=== PATIENT | female | born 1935 | race Caucasian/White ===

== ENCOUNTER 2018-05-26 17:34 | Inpatient (IN) ==
[2018-05-26] MEDS ORDERED: Naloxone 0.4 MG/ML INJ IVP PRN (22:13)
[2018-05-26] MEDS ORDERED: 0.9 % Sodium Chloride 1,000 ML IVC SCH (22:15)
[2018-05-26] MEDS ORDERED: Acetaminophen 325 MG TABLET PO PRN (22:21)
[2018-05-26] MEDS ORDERED: Ondansetron ODT 4 MG TAB.RAPDIS PO PRN (22:21)
[2018-05-27] MEDS: Sucralfate 1 GM TABLET PO SCH ×6 (01:54→22:01)
[2018-05-27 05:53] LABS: Basophils # 0.1 K/mcL (0.0-0.2); Basophils % 0.6 %; Eosinophils # 0.2 K/mcL (0.0-0.6); Eosinophils % 2.3 %; Hematocrit 34.9 % (35.3-44.9); Hemoglobin 12.1 g/dL (11.5-15.4); Immature Granulocytes % 0.2 % (0-4); Lymphocytes # 2.2 K/mcL (0.6-4.6); Lymphocytes % 25.8 %; Mean Corpuscular HGB Conc 34.7 g/dL (31.6-35.5); Mean Corpuscular Hemoglobin 30.9 pg (28.0-33.3); Mean Corpuscular Volume 89.3 fL (83.0-100.0); Mean Platelet Volume 9.5 fL (9.4-12.4); Monocytes # 1.1 K/mcL (0.0-1.3); Monocytes % 12.2 %; Neutrophils # 5.1 K/mcL (1.6-8.9); Platelet Count 234 K/mcL (140-400); Red Blood Count 3.91 M/mcL (3.82-4.97); Red Cell Distribution Width 11.9 % (11.5-14.5); Segmented Neutrophils % 58.9 %
[2018-05-27] MEDS ORDERED: *HR* Enoxaparin 40 MG/0.4 ML SYRINGE SQ SCH (06:00)
[2018-05-27 06:15] LABS: BUN/Creatinine Ratio 17 (6-26); Blood Urea Nitrogen 18 mg/dL (8-23); Calcium 9.2 mg/dL (8.6-10.3); Carbon Dioxide 28 mEq/L (23-29); Chloride 92 mEq/L (98-107); Glucose 99 mg/dL (70-105); Osmolality,Calculated 270 (280-300); Potassium 3.1 mEq/L (3.5-5.1); Sodium 129 mEq/L (136-145); eGFR For Non-African Americans 50 (> 60)
--- NOTE | 2018-05-27 06:30 | Internal Med History&Physical ---
Date of Encounter: 05/26/18 Time of Encounter: 23:00 Internal Medicine - H&P: HPI Chief complaint: Syncope; altered mental status Admitted From: Long-term Nursing Facility Plans for Post Hospital Care: Transfer [facility] History of present illness: Ms. Curtis is a 82 year old female. We got this patient from [facility]'s clinic in [facility]. 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 She developed left-sided weakness. After treatment in an acute care facility she was transferred to longterm facility. Today morning she experienced an episode of unresponsiveness lasting for a few minutes. The patient has been developing some confusion for about 1 week. It got worse today. She was started on Zoloft today morning. Her UA is showing changes suspected of UTI. After getting her first dose of IV antibiotic her mental status got somewhat better. She knows her first name and last name. She knows where she is. The patient is a treated for hypertension and GERD. She is treated for depression with anxiety. Review of systems: All 14 organ systems were reviewed by me with the patient. Positive and pertinent negative findings are listed above. The rest of organ systems is negative. Physical Exam: Skin: Free of rash and discoloration. Eyes: Sclera is white. There is no discharge from eyes. ENMT: Oral/pharyngeal mucosa is normal in appearance. There is no discharge from nose or ears. Respiratory: Normal breath sounds with no crackles and wheezes bilaterally. CV: Heart is regular with no gallop or murmur. GI: Abdomen is flat and soft with no palpable mass or visceromegaly. : There is no tenderness in patient's flanks bilaterally. Neuro exam: There is moderate weakness in the left extremities. She has normal eye movements. Psychiatric: He has normal affect. His thought process is appropriate to the situation. Past Med Surg Social Fam HX - Past Medical History Medical history: CHF, CVA, GERD, hypertension, TIA Additional medical history: diverticulosis Psychiatric history: no psych history - Past Surgical History Surgical History: cholecystectomy - Social History Smoking Status: Never smoker Alcohol use: none Drug use: none Internal Medicine - H&P: Meds Acetaminophen [Tylenol] 650 mg PO Q6HR PRN 05/26/18 [History] Atenolol [Tenormin] 50 mg PO BID 05/26/18 [History] Atorvastatin [Lipitor] 10 mg PO HS 05/26/18 [History] Chlorthalidone 12.5 mg PO 05/26/18 [History] Cholecalciferol (Vitamin D3) [Dialyvite Vitamin D] 5,000 unit PO DAILY 05/26/18 [History] Clopidogrel [Plavix] 75 mg PO DAILY 05/26/18 [History] Lisinopril [Zestril] 40 mg PO BID 05/26/18 [History] Ondansetron HCl [Zofran] 4 mg PO Q6HR PRN 05/26/18 [History] Polyethylene Glycol 3350 [MiraLAX] 17 gm PO DAILY PRN 05/26/18 [History] Ranitidine HCl [Zantac] 300 mg PO DAILY 05/26/18 [History] Sennosides [Senna] 8.6 mg PO BID 05/26/18 [History] Sertraline [Zoloft] 25 mg PO DAILY 05/26/18 [History] Sucralfate [Carafate] 1 gm PO HS 05/26/18 [History] Sucralfate [Carafate] 1 gm PO TIDAC 05/26/18 [History] Trazodone HCl 25 mg PO DAILY 05/26/18 [History] cloNIDine HCl [CloNIDine HCl] 0.1 mg PO TID 05/26/18 [History] 3 Allergy/AdvReac Type Severity Reaction Status Date / Time amlodipine Allergy Anaphylaxis Verified 05/27/18 01:51 Terazosin Allergy Anaphylaxis Verified 05/27/18 01:51 All Systems PM: A 10-system review of systems was performed and is negative for pertinent findings except as documented above in the HPI. - Constitutional Vitals: Temp Pulse Resp BP Pulse Ox 97.8 F 61 16 154/72 94 05/27/18 04:41 05/27/18 04:41 05/27/18 04:41 05/27/18 04:41 05/27/18 04:41 Internal Med - H&P Results - Labs CBC & Chem 7: 05/27/18 05:40 05/27/18 05:40 Labs: Short CBC 05/27/18 Range/Units 05:40 WBC 8.6 (4.3-11.1) K/mcL Hgb 12.1 (11.5-15.4) g/dL Hct 34.9 L (35.3-44.9) % Plt Count 234 (140-400) K/mcL Neutrophils # 5.1 (1.6-8.9) K/mcL BMP 05/27/18 05:40 Sodium 129 L Potassium 3.1 L Chloride 92 L Carbon Dioxide 28 BUN 18 Creatinine 1.04 Glucose 99 Calcium 9.2 - Assessment and plan (1) Syncope Current Visit: Yes Status: Acute Assessment and plan: I am not sure, whether she had true syncope a short lasting episode of unresponsiveness.We will observe her in telemetry floor. The patient had recently CVA. They repeated an MRI of her brain. It shows a subacute CVA in the distribution of her right middle cerebral artery. She might have had short lasting seizure. I discussed this case with neurology. Qualifiers: Syncope type: unspecified Qualified Code(s): R55 - Syncope and collapse (2) Altered mental state Current Visit: Yes Status: Acute Assessment and plan: It could be secondary to her first dose of Zoloftwill stop this medication. It could be secondary to early urinary tract infection. We will keep her on IV Cipro. She could be postictal. I doubt, she has a new CVA. Her subacute infarct showing on her last MRI is likely the infarct she had 6 weeks ago. Neurology is consulted. Qualifiers: Altered mental status type: transient alteration of awareness Qualified Code(s): R40.4 - Transient alteration of awareness (3) HTN (hypertension) Current Visit: Yes Status: Acute Assessment and plan: Her blood pressure is under control. We will continue lisinopril. Qualifiers: Hypertension type: essential hypertension Qualified Code(s): I10 - Essential (primary) hypertension (4) GERD (gastroesophageal reflux disease) Current Visit: Yes Status: Acute Assessment and plan: Seems to be under control. We will continue omeprazole. Qualifiers: Esophagitis presence: esophagitis presence not specified Qualified Code(s) : K21.9 - Gastro-esophageal reflux disease without esophagitis - Time Spent With Patient Total time spent is greater than 50% in coordination of care (as documented) at patient's floor/unit and/or counseling patient: Greater than 35 minutes (40 minutes)
[2018-05-27] MEDS ORDERED: traZODone 50 MG TABLET PO SCH (09:00)
[2018-05-27] MEDS: Sennosides 8.6 MG TABLET PO SCH ×2 (09:58→22:01)
[2018-05-27] MEDS: cloNIDine HCl 0.1 MG TABLET PO SCH ×3 (09:58→22:01)
[2018-05-27] MEDS: Famotidine 20 MG TABLET PO SCH (09:59)
[2018-05-27] MEDS: Cholecalciferol (D-3) 1,000 UNIT TABLET PO SCH (09:59)
[2018-05-27] MEDS: Lisinopril 20 MG TABLET PO SCH ×2 (09:59→22:02)
--- NOTE | 2018-05-27 10:43 | Event Note ---
<Sveta Cruz A - Last Filed: 05/27/18 15:28> Date of Encounter: 05/27/18 Time of Encounter: 09:30 Medical Student Note-Sveta Cruz OMS-IV Subjective: Patient was laying down and speaking with her daughter upon my arrival. Upon questioning the patient is alert and oriented x 2. Patient states that she was unable to sleep well last night and was having abdominal pain, but denies any pain at this time. Patient also denies any other acute distress but is tearful and states that she feels like she is "back to square one" in terms of her medical problems. Ms. Curtis denies any chest pain, shortness of breath, weakness, abdominal pain, nausea/vomiting, or chills. Objective: Vitals: Temperature-97.8, HR-64, RR-16, RP-175/90, O2-97 General Appearance: Patient is alert and oriented x 2 (person and place) Head exam: Atraumatic, normocephalic Eye exam: PERRL, conjuntiva pink, sclera anicteric Neck exam: Trachea midline Respiratory exam: No wheezing, rales, or rhonci Cardiology exam: RRR, +S1, +S2 Gastrointestinal exam: Normal bowel sounds, soft Extremities exam: warm without tenderness or peripheral edema Neurological exam: CN II-XII intact, weakness of the left upper and lower extremities (muscle strength 2/5). Skin exam: Dry and intact Assessment: 1. Altered Mental Status 2. Syncope 3. UTI 4. Hyponatremia 5. Hypokalemia 6. Hypertension 7. GERD 8. DVT Prophylaxis Plan: 1. Patient is alert and oriented x 2 (person and place). Upon admission the patient was disoriented and alf states that she had been developing confusion over the last week. AMS is believed to be secondary to UTI or from first dose of Zoloft (Discontinued), patient's mental status improved after receiving the first dose of antibiotics. AMS could also be due to electrolyte imbalance (hyponatremia). Continue to monitor the patient. 2. Nursing staff state that the patient experienced an episode of unresponsiveness lasting for a few minutes yesterday morning. Ms. Curtis states that as far as she knows she has had no other such episodes since her admission. MRI from the [facility] showed a subacute CVA in the distribution of her right middle cerebral artery, this is likely from her previous CVA 6 weeks ago. Could possibly have occurred from a seizure, consider getting an EEG for the patient. Neurology has been consulted. 3. The patient's AMS is believed to be secondary to UTI. The patient received a Urinalysis from the [facility] which showed evidence of her UTI prior to her transfer to [facility], however those results are not available. Patient is receiving treatment with Ciprofloxacin 400 mg in 200 mls @ 200 mls/hr. Patient appears to be clinically improving, currently afebrile and WBC is 8.6 4. Ms. Curtis latest CMP revealed a slightly low sodium of 129. Patient has been administered Sodium Chloride earlier this morning and she denies any nausea , headaches, muscle spasms, and does not appear to be irritable. Patient should receive replacement if lab value does not improve. 5. Patient's latest CMP also revealed a low potassium of 3.1. Patient denies any constipation, palpiptations, or numbness. On physical exam her abdomen is soft and non-distended. Patient should receive oral replacement with 40mEq PO KCL. 6. Patient has a previous history of hypertension, currently receiving Lisinopril Chlorthalidone, and Clonidine. Latest value of 127/65. 7. Patient has a previous history of GERD. Currently receiving therapy via Famotidine. 8. Patient is currently receiving anticoagulation with Lovenox. No complaints of any calf/leg tenderness and there is no swelling of the lower extremities <Brit Elizondo - Last Filed: 06/07/18 17:43> Date of Encounter: 06/07/18 I examined this patient and my medical decision-making was reviewed with the Medical student. Please see progress note available in EMR chart.
[2018-05-27] MEDS ORDERED: Preparation H Ointment 30 GM TUBE RC PRN (14:54)
--- NOTE | 2018-05-27 15:00 | Internal Med Progress Note ---
Hospitalist Progress Note - Encounter Date of Encounter: 05/27/18 Time of Encounter: 12:00 - Subjective Interval History: No acute events. Patient states she is still having left sided weakness but this was still on-going since after stroke. She denies change in vision, headache, fevers/chills, n/v, LOC, chest pain, SOB. - Exam Vitals: Temp Pulse Resp BP Pulse Ox 97.9 F 60 16 127/65 97 05/27/18 10:56 05/27/18 10:56 05/27/18 10:56 05/27/18 10:56 05/27/18 10:56 Exam: Eyes: Sclera is white. There is no discharge from eyes. Respiratory: CTAB CV: RRR, no mrg GI: Softn, NT/ND, normal bowel sound Neuro exam: Weakness in the left extremities. She has normal eye movements. Psychiatric: He has normal affect. His thought process is appropriate to the situation. Skin: No rash - Assessment and Plan (1) Syncope Current Visit: Yes Status: Acute Assessment and Plan: Unsure if this is true syncope. Patient states she did not have any LOC she was just feeling weak. She recently had CVA which could contribute to weakness. Repeated MRI of her brain showed a subacute CVA in the distribution of her right middle cerebral artery. She might have had short lasting seizure. Neurology consulted, recommendations appreciated. (2) Altered mental state Current Visit: Yes Status: Acute Assessment and Plan: Suggested this could be from UTI continue antibiotics. (3) GERD (gastroesophageal reflux disease) Current Visit: Yes Status: Acute (4) HTN (hypertension) Current Visit: Yes Status: Acute Assessment and Plan: Resume medications. - Time Spent with Patient Total time spent is greater than 50% in coordination of care (as documented) at patient's floor/unit and/or counseling patient: Internal Medicine: Result - Labs CBC & Chem 7: 05/27/18 05:40 05/27/18 05:40 Labs: Short CBC 05/27/18 Range/Units 05:40 WBC 8.6 (4.3-11.1) K/mcL Hgb 12.1 (11.5-15.4) g/dL Hct 34.9 L (35.3-44.9) % Plt Count 234 (140-400) K/mcL Neutrophils # 5.1 (1.6-8.9) K/mcL BMP 05/27/18 05:40 Sodium 129 L Potassium 3.1 L Chloride 92 L Carbon Dioxide 28 BUN 18 Creatinine 1.04 Glucose 99 Calcium 9.2 Consult Discharge Plan - Plan Referrals: Luis Fernando Galeana MD [Primary Care Provider] - (1) Syncope Qualifiers: Syncope type: unspecified Qualified Code(s): R55 - Syncope and collapse (2) Altered mental state Qualifiers: Altered mental status type: transient alteration of awareness Qualified Code( s): R40.4 - Transient alteration of awareness (3) GERD (gastroesophageal reflux disease) Qualifiers: Esophagitis presence: esophagitis presence not specified Qualified Code(s): K21.9 - Gastro-esophageal reflux disease without esophagitis (4) HTN (hypertension) Qualifiers: Hypertension type: essential hypertension Qualified Code(s): I10 - Essential (primary) hypertension
--- NOTE | 2018-05-27 15:34 | Neurology - Consult Note ---
<Silver Deal T - Last Filed: 05/27/18 17:21> Date of Encounter: 05/27/18 Time of Encounter: 11:40 Assessment and Plan (1) Altered mental state Current Visit: Yes Status: Acute Her new onset confusion is likely due to her current UTI. However, likely has some baseline dementia that has not been formally tested which her UTI likely exacerbated. There is no evidence of a new acute stroke or another metabolic cause. Continue current treatment for her UTI and reassess for changes in mental status. Qualifiers: Altered mental status type: transient alteration of awareness Qualified Code(s): R40.4 - Transient alteration of awareness History of Present Illness Chief complaint: Confusion HPI: Ms. Curtis is a 82 year old female with a PMH significant for R MCA CVA 6 weeks ago and HTN, neurology consult for confusion/unresponsiveness. Since dc for the R MCA CVA she has been at stroke rehab, beginning this week she began to become confused and yesterday morning while at rehab she was sitting in a chair and the staff was attempting to talk to her and she was not responsive to them. She denies this and says she could hear and see them but was just resting for a couple min. She has become more agitated this week and was given first dose of zoloft yesterday morning. A UA from the rehab center showed evidence of an UTI and has been placed on IV cipro and zoloft stopped. Since the antibiotics were begun the admission note indicated her confusion has decreased. Today, she says she feels better than yesterday but indicated she does not believe she was ever confused. Her daughter at bedside said since she has been here her confusion has fluctuated and has some baseline memory loss. She complains of feeling like she has to urinate but when attempting to urinate she is unable to. She also indicates her appetite has been very decreased and when attempting to eat she loses her appetite. She denies any new neurological deficits and has been making progress with improving the previous CVA deficits at rehab. Past Med Surg Social Fam HX - Past Medical History Medical history: CHF, CVA, GERD, hypertension, TIA Additional medical history: diverticulosis Psychiatric history: no psych history - Past Surgical History Surgical History: cholecystectomy - Social History Smoking Status: Never smoker Alcohol use: none Drug use: none Medications and Allergies Acetaminophen [Tylenol] 650 mg PO Q6HR PRN 05/26/18 [History] Atenolol [Tenormin] 50 mg PO BID 05/26/18 [History] Atorvastatin [Lipitor] 10 mg PO HS 05/26/18 [History] Chlorthalidone 12.5 mg PO Q48H 05/26/18 [History] Cholecalciferol (Vitamin D3) [Dialyvite Vitamin D] 5,000 unit PO DAILY 05/26/18 [History] Clopidogrel [Plavix] 75 mg PO DAILY 05/26/18 [History] Lisinopril [Zestril] 40 mg PO BID 05/26/18 [History] Ondansetron HCl [Zofran] 4 mg PO Q6HR PRN 05/26/18 [History] Polyethylene Glycol 3350 [MiraLAX] 17 gm PO DAILY PRN 05/26/18 [History] Ranitidine HCl [Zantac] 300 mg PO DAILY 05/26/18 [History] Sennosides [Senna] 8.6 mg PO BID 05/26/18 [History] Sertraline [Zoloft] 25 mg PO DAILY 05/26/18 [History] Sucralfate [Carafate] 1 gm PO HS 05/26/18 [History] Sucralfate [Carafate] 1 gm PO TIDAC 05/26/18 [History] Trazodone HCl 25 mg PO HS 05/26/18 [History] cloNIDine HCl [CloNIDine HCl] 0.1 mg PO TID 05/26/18 [History] 3 Allergy/AdvReac Type Severity Reaction Status Date / Time amlodipine Allergy Anaphylaxis Verified 05/27/18 01:51 Terazosin Allergy Anaphylaxis Verified 05/27/18 01:51 All Systems: The remainder of the systems were reviewed and are negative Physical Examination - Vital Signs Vital Signs: Initial Vital Signs Temp Pulse Resp BP Pulse Ox 97.5 F L 59 17 144/78 99 05/26/18 19:15 05/26/18 19:15 05/26/18 19:15 05/26/18 19:15 05/26/18 19:15 - Constitutional General appearance: comfortable - Neurologic Detailed motor examination: grossly full strength in all extremities Mental Status Examination: awake, alert, oriented to person, oriented to place, follows commands appropriately, impaired memory, impaired cognition, MMSE ( Thought year was 1920, could spell world forward but not backwards, serial 7's produced result of 903 for 100-7, could follow commands and repeat, remembered 3 /3 words, incorrectly braxton clock face, and could correctly name objects) Cranial nerve examination: PERRL, EOMI, sensory to face intact, no facial asymmetry is present (Thought year was 1919, ), no dysarthria, hearing is intact symmetrically, soft palate elevates bilaterally upon phonation, flexes SCM and trapezius muscles symmetrically with full power, tongue protrudes midline, no atrophy or facial fasiculations present Results - Laboratory Findings CBC and BMP: 05/27/18 05:40 05/27/18 05:40 Abnormal lab findings: Abnormal lab results Hct 34.9 % (35.3-44.9) L 05/27/18 05:40 Sodium 129 mEq/L (136-145) L 05/27/18 05:40 Potassium 3.1 mEq/L (3.5-5.1) L 05/27/18 05:40 Chloride 92 mEq/L (98-107) L 05/27/18 05:40 Est GFR (Non-Af Amer) 50 (> 60) L 05/27/18 05:40 Calculated Osmolality 270 (280-300) L 05/27/18 05:40 Consult Discharge Plan - Plan Referrals: Luis Fernando Galeana MD [Primary Care Provider] - <Luis Fernando Morataya E - Last Filed: 05/28/18 14:07> Date of Encounter: 05/28/18 Time of Encounter: 14:01 Assessment and Plan (1) Altered mental state Current Visit: Yes Status: Acute I agree with Dr. Deal's assessment as stated above. She is back to her normal baseline status now. I would like to confirm the previous right hemispheric cerebral infarct. However therefore obtain a CT scan of the brain today. I would like this done prior to discharge. Otherwise ongoing rehabilitation and management of her stroke risk factors is paramount. Maintain antiplatelet therapy, antihypertensives, and statin therapy. Qualifiers: Altered mental status type: transient alteration of awareness Qualified Code(s): R40.4 - Transient alteration of awareness History of Present Illness HPI: The chart was reviewed, the patient was seen and examined independently. Case was discussed with Dr. Deal. I agree with his assessment as stated above. Ms. Curtis is a 82 year old female who is being seen for neurologic consultation secondary to confusion. Apparently she had a recent right hemispheric cerebral infarct with some residual left-sided weakness. And while in the rehabilitation facility she began to become acutely confused ultimately was determined that she had a urinary tract infection and she was likely having infectious encephalopathy due to the UTI. The UTI has been treated and now she is back to her baseline of function. All Systems: The remainder of the systems were reviewed and are negative Review of Systems: The balance of the systems review is negative. Physical Examination - Vital Signs Vital Signs: Initial Vital Signs Temp Pulse Resp BP Pulse Ox 97.5 F L 59 17 144/78 99 05/26/18 19:15 05/26/18 19:15 05/26/18 19:15 05/26/18 19:15 05/26/18 19:15 - Neurologic Motor examination - right side: 5/5: deltoids, biceps, triceps, agricultural equipment sales engineer, hip flexors, tibialis Anterior, quadriceps, toe extension (EHL), plantarflexion Motor examination - left side: 4/5: deltoids, biceps, triceps, hip flexors, agricultural equipment sales engineer , quadriceps, tibialis Anterior, toe extension (EHL), plantarflexion Detailed sensory examination: intact Results - Laboratory Findings CBC and BMP: 05/28/18 06:07 05/28/18 06:07 Abnormal lab findings: Abnormal lab results Sodium 130 mEq/L (136-145) L 05/28/18 06:07 Potassium 3.1 mEq/L (3.5-5.1) L 05/28/18 06:07 Chloride 94 mEq/L (98-107) L 05/28/18 06:07 Est GFR (Non-Af Amer) 55 (> 60) L 05/28/18 06:07 Calculated Osmolality 272 (280-300) L 05/28/18 06:07
[2018-05-27] MEDS ORDERED: *HR* LORazepam 0.5 MG TABLET PO ONE (17:26)
[2018-05-27] MEDS: traZODone 50 MG TABLET PO SCH (22:01)
[2018-05-28 06:42] LABS: Basophils # 0.1 K/mcL (0.0-0.2); Basophils % 0.6 %; Eosinophils # 0.2 K/mcL (0.0-0.6); Eosinophils % 2.4 %; Hematocrit 35.5 % (35.3-44.9); Hemoglobin 12.4 g/dL (11.5-15.4); Immature Granulocytes % 0.2 % (0-4); Lymphocytes # 2.2 K/mcL (0.6-4.6); Lymphocytes % 25.7 %; Mean Corpuscular HGB Conc 34.9 g/dL (31.6-35.5); Mean Corpuscular Hemoglobin 31.2 pg (28.0-33.3); Mean Corpuscular Volume 89.4 fL (83.0-100.0); Mean Platelet Volume 9.7 fL (9.4-12.4); Monocytes # 1.2 K/mcL (0.0-1.3); Monocytes % 14.4 %; Neutrophils # 4.8 K/mcL (1.6-8.9); Platelet Count 250 K/mcL (140-400); Red Blood Count 3.97 M/mcL (3.82-4.97); Red Cell Distribution Width 11.6 % (11.5-14.5); Segmented Neutrophils % 56.7 %
[2018-05-28] MEDS: *HR* Enoxaparin 30 MG/0.3 ML SYRINGE SQ SCH (07:00)
[2018-05-28] MEDS: Sucralfate 1 GM TABLET PO SCH ×4 (07:01→21:38)
[2018-05-28 07:04] LABS: BUN/Creatinine Ratio 18 (6-26); Blood Urea Nitrogen 17 mg/dL (8-23); Calcium 9.1 mg/dL (8.6-10.3); Carbon Dioxide 28 mEq/L (23-29); Chloride 94 mEq/L (98-107); Glucose 103 mg/dL (70-105); Osmolality,Calculated 272 (280-300); Potassium 3.1 mEq/L (3.5-5.1); Sodium 130 mEq/L (136-145); eGFR For Non-African Americans 55 (> 60)
[2018-05-28] MEDS: Sennosides 8.6 MG TABLET PO SCH ×3 (09:42→21:38)
[2018-05-28] MEDS: Lisinopril 20 MG TABLET PO SCH ×2 (09:42→21:38)
[2018-05-28] MEDS: Famotidine 20 MG TABLET PO SCH (09:43)
[2018-05-28] MEDS: cloNIDine HCl 0.1 MG TABLET PO SCH ×3 (09:43→21:38)
[2018-05-28] MEDS: Cholecalciferol (D-3) 1,000 UNIT TABLET PO SCH (09:43)
[2018-05-28] MEDS ORDERED: 0.9 % Sodium Chloride 1,000 ML IVC SCH (11:15)
--- NOTE | 2018-05-28 11:39 | Internal Med Progress Note ---
Hospitalist Progress Note - Encounter Date of Encounter: 05/28/18 Time of Encounter: 11:32 - Subjective Interval History: No acute events. Patient states she is still having left sided weakness but this was still on-going since after stroke. She denies change in vision, headache, fevers/chills, n/v, LOC, chest pain, SOB. - Exam Vitals: Temp Pulse Resp BP Pulse Ox 97.9 F 61 16 189/81 98 05/28/18 06:52 05/28/18 06:52 05/28/18 06:52 05/28/18 06:52 05/28/18 09:43 Exam: Gen: NAD, AAOx3 HEENT: MM dry CVS: RRR Lungs: CTAB Abd: Soft, NT, ND Ext: No edema, no cyanosis. Left arm erythema near old IV site. No swelling. - Assessment and Plan (1) Altered mental state Current Visit: Yes Status: Acute Assessment and Plan: Suggested this could be from UTI and dehydration/presyncope continue antibiotics. Gentle IV fluid hydration, she appears dry today. Likely discharge tomorrow to [facility] rehab if sodium and hydration correct. (2) Syncope Current Visit: Yes Status: Acute Assessment and Plan: Unsure if this is true syncope. Patient states she did not have any LOC she was just feeling weak. She recently had CVA which could contribute to weakness. Repeated MRI of her brain showed a subacute CVA in the distribution of her right middle cerebral artery. She might have had short lasting seizure. Likely this was presyncope from dehydration and UTI (3) GERD (gastroesophageal reflux disease) Current Visit: Yes Status: Acute (4) HTN (hypertension) Current Visit: Yes Status: Acute Assessment and Plan: Hold chlorthalidone due to hyponatremia and hypokalemia. May need held on discharge with follow-up in few days. Continue Lisinopril IV hydralazine prn. - Time Spent with Patient Total time spent is greater than 50% in coordination of care (as documented) at patient's floor/unit and/or counseling patient: Internal Medicine: Result - Labs CBC & Chem 7: 05/28/18 06:07 05/28/18 06:07 Labs: Short CBC 05/28/18 Range/Units 06:07 WBC 8.4 (4.3-11.1) K/mcL Hgb 12.4 (11.5-15.4) g/dL Hct 35.5 (35.3-44.9) % Plt Count 250 (140-400) K/mcL Neutrophils # 4.8 (1.6-8.9) K/mcL BMP 05/28/18 06:07 Sodium 130 L Potassium 3.1 L Chloride 94 L Carbon Dioxide 28 BUN 17 Creatinine 0.96 Glucose 103 Calcium 9.1 Consult Discharge Plan - Plan Referrals: Luis Fernando Galeana MD [Primary Care Provider] - (1) Altered mental state Qualifiers: Altered mental status type: transient alteration of awareness Qualified Code( s): R40.4 - Transient alteration of awareness (2) Syncope Qualifiers: Syncope type: unspecified Qualified Code(s): R55 - Syncope and collapse (3) GERD (gastroesophageal reflux disease) Qualifiers: Esophagitis presence: esophagitis presence not specified Qualified Code(s): K21.9 - Gastro-esophageal reflux disease without esophagitis (4) HTN (hypertension) Qualifiers: Hypertension type: essential hypertension Qualified Code(s): I10 - Essential (primary) hypertension
[2018-05-28] MEDS: cefTRIAXone 1,000 MG in Water for inj. (sterile) 20 ML 10 ML IVP SCH (11:46)
[2018-05-28] MEDS: traZODone 50 MG TABLET PO SCH (21:39)
[2018-05-29 05:02] LABS: BUN/Creatinine Ratio 13 (6-26); Blood Urea Nitrogen 11 mg/dL (8-23); Carbon Dioxide 27 mEq/L (23-29); Chloride 99 mEq/L (98-107); Glucose 106 mg/dL (70-105); Osmolality,Calculated 276 (280-300); Potassium 3.6 mEq/L (3.5-5.1); Sodium 133 mEq/L (136-145); eGFR For Non-African Americans > 60 (> 60)
[2018-05-29] MEDS: *HR* Enoxaparin 30 MG/0.3 ML SYRINGE SQ SCH (06:41)
[2018-05-29] MEDS: Famotidine 20 MG TABLET PO SCH (08:39)
[2018-05-29] MEDS: Cholecalciferol (D-3) 1,000 UNIT TABLET PO SCH (08:39)
[2018-05-29] MEDS: cloNIDine HCl 0.1 MG TABLET PO SCH ×2 (08:39→16:20)
[2018-05-29] MEDS: Lisinopril 20 MG TABLET PO SCH (08:39)
[2018-05-29] MEDS: Sennosides 8.6 MG TABLET PO SCH (08:39)
[2018-05-29] MEDS: Sucralfate 1 GM TABLET PO SCH ×3 (08:39→17:14)
[2018-05-29] MEDS: cefTRIAXone 1,000 MG in Water for inj. (sterile) 20 ML 10 ML IVP SCH (09:17)
--- NOTE | 2018-05-29 10:50 | Neurology Progress Note ---
Date of Encounter: 05/29/18 Time of Encounter: 10:47 Assessment and Plan (1) Toxic metabolic encephalopathy Current Visit: Yes Status: Acute I believe that would be ultimately have here was a case of toxic metabolic encephalopathy due to acute urinary tract infection. She also has a baseline dementia. It may have been a sunding component attributable to her acute hospitalization. However at the current time she is back to her normal baseline. I see no evidence of any ongoing acute central nervous system process. From my perspective she is okay to be sent back to the rehabilitation center. Ongoing management of her stroke risk factors will be paramount. Maintain statins, antihypertensives, and antiplatelet therapy. I believe she has a good chance at an optimal recovery. I will reevaluate her your request. I did discuss all the above with her daughter who was present in the room. Time spent with patient today was 25 minutes with greater than 50% of that time being spent in [id number] contact which consisted of counseling and coordinating care. Subjective Interval history: The chart was reviewed, the patient was seen and examined. No acute changes since our last visit. Her daughter is sitting at bedside. I did have a detailed discussion with her daughter about the events leading to her admission. The CT scan of the brain was completed yesterday. 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 No evidence of luxury perfusion or any acute findings were identified. Upon my entering the room patient was sleeping. She aroused easily to voice. She has no complaints today. Objective - Constitutional Vitals: Temp Pulse Resp BP Pulse Ox 98.5 F 68 17 147/77 98 05/29/18 07:45 05/29/18 07:45 05/29/18 07:45 05/29/18 07:45 05/29/18 07:45 - Neurological Exam Motor Examination: Present: grossly full strength in all extremities Motor examination - right side: 5/5: deltoids, biceps, triceps, traffic enumerator, hip flexors, tibialis Anterior, quadriceps, toe extension (EHL), plantarflexion Motor examination - left side: 4/5: deltoids, biceps, triceps, hip flexors, traffic enumerator , quadriceps, tibialis Anterior, toe extension (EHL), plantarflexion Sensation intact: Present: intact Mental Status Examination: Present: awake, alert, oriented to person, oriented to place, follows commands appropriately, impaired memory, impaired cognition, MMSE (Thought year was 1919, could spell world forward but not backwards, serial 7's produced result of 903 for 100-7, could follow commands and repeat, remembered 3/3 words, incorrectly braxton clock face, and could correctly name objects). Absent: oriented to time (She thought today was Wednesday, it is actually Wednesday.) Cranial nerve examination: Present: PERRL, EOMI, sensory to face intact, no facial asymmetry is present (Thought year was 1919, ), no dysarthria, hearing is intact symmetrically, soft palate elevates bilaterally upon phonation, flexes SCM and trapezius muscles symmetrically with full power, tongue protrudes midline, no atrophy or facial fasiculations present Results - Laboratory Findings CBC and BMP: 05/28/18 06:07 05/29/18 04:05 Abnormal lab findings: Abnormal lab results Sodium 133 mEq/L (136-145) L 05/29/18 04:05 Glucose 106 mg/dL (70-105) H 05/29/18 04:05 Calculated Osmolality 276 (280-300) L 05/29/18 04:05 Consult Discharge Plan - Plan Referrals: Luis Fernando Galeana MD [Primary Care Provider] -
--- NOTE | 2018-05-29 11:17 | Discharge Summary ---
- NOTES TO OUTPATIENT PROVIDER Notes to Outpatient Provider: Follow-up BMP - chlorthalidone held because of hyponatremia and hypokalemia Date of Encounter: 05/29/18 Time of Encounter: 11:15 - Discharge Diagnosis (1) Altered mental state Priority: Primary Status: Acute Qualifiers: Altered mental status type: unspecified Qualified Code(s): R41.82 - Altered mental status, unspecified (2) Syncope Priority: Secondary Status: Acute Qualifiers: Syncope type: unspecified Qualified Code(s): R55 - Syncope and collapse (3) GERD (gastroesophageal reflux disease) Priority: Secondary Status: Acute Qualifiers: Esophagitis presence: esophagitis presence not specified Qualified Code(s) : K21.9 - Gastro-esophageal reflux disease without esophagitis (4) HTN (hypertension) Priority: Secondary Status: Acute Qualifiers: Hypertension type: essential hypertension Qualified Code(s): I10 - Essential (primary) hypertension Hospital course: We got this patient from [facility]'s clinic in [facility]. This patient had an acute CVA in the distribution of the right MCA about 6 weeks ago, and so has a left sided weakness at baseline. She has been at a [facility] rehab facility since then. She presented on day of admission due to nursing stating that she was unresponsive for a few minutes. Patient states she was responsive and didn't have any LOC but she was fatigued. The nursing staff noted that she has been confused for about one week. A CT head showed old infarct but no acute process. Neurology was consulted and recommended treating underlying condition; dehydration and UTI> Her UA has findings consistent with UTI. She was treated with antibiotics (Cipro and then Rocephin) and patient improved. She was found to have hyponatremia and hypokalemia and she was given IV fluids and chlorthalidone was held. Patient improved and she was able to advance diet and electrolytes improved after IV fluids. Patient energy and mental status was at baseline per daughter. She is stable for discharge to complete 4 more days of Omnicef. She will need blood pressure and BMP monitoring. - Time Spent with Patient Total time spent providing and/or coordinating discharge services: - Discharge Medications Home Medications: Acetaminophen [Tylenol] 650 mg PO Q6HR PRN 05/26/18 [History] Atenolol [Tenormin] 50 mg PO BID 05/26/18 [History] Atorvastatin [Lipitor] 10 mg PO HS 05/26/18 [History] Cholecalciferol (Vitamin D3) [Dialyvite Vitamin D] 5,000 unit PO DAILY 05/26/18 [History] Clopidogrel [Plavix] 75 mg PO DAILY 05/26/18 [History] Lisinopril [Zestril] 40 mg PO BID 05/26/18 [History] Ondansetron HCl [Zofran] 4 mg PO Q6HR PRN 05/26/18 [History] Polyethylene Glycol 3350 [MiraLAX] 17 gm PO DAILY PRN 05/26/18 [History] Ranitidine HCl [Zantac] 300 mg PO DAILY 05/26/18 [History] Sennosides [Senna] 8.6 mg PO BID 05/26/18 [History] Sertraline [Zoloft] 25 mg PO DAILY 05/26/18 [History] Sucralfate [Carafate] 1 gm PO HS 05/26/18 [History] Sucralfate [Carafate] 1 gm PO TIDAC 05/26/18 [History] Trazodone HCl 25 mg PO HS 05/26/18 [History] cloNIDine HCl [CloNIDine HCl] 0.1 mg PO TID 05/26/18 [History] Cefdinir [Omnicef] 300 mg PO BID #8 capsule 05/29/18 [Rx] Preparation H Ointment 1 appl RC QID PRN tube 05/29/18 [Rx] Allergies/Adverse Reactions: 3 Allergy/AdvReac Type Severity Reaction Status Date / Time amlodipine Allergy Anaphylaxis Verified 05/27/18 01:51 Terazosin Allergy Anaphylaxis Verified 05/27/18 01:51 Date of admission: 05/26/18 19:57 Primary care physician: Luis Fernando Galeana MD Consults: 05/26/18 22:25 Consult to Neurology [CONS] Routine Consulting Provider: [facility] Reason for Consult: Had CVA 6 weeks ago. Syncope - today morning. AMS - started today morning; possible UTI. Got her from [facility] in [facility]. Time Notified: 22:20 Call Completed: Yes 05/27/18 11:59 Consult to Medical Driver [CONS] Routine Reason for SW Consult: Patient from [facility] rehab/SNF Discharging clinician: Brit Elizondo - Constitutional Vitals: Temp Pulse Resp BP Pulse Ox 98.5 F 68 17 147/77 98 05/29/18 07:45 05/29/18 07:45 05/29/18 07:45 05/29/18 07:45 05/29/18 09:30 Exam: Gen: NAD, AAOx3 HEENT: MM dry CVS: RRR Lungs: CTAB Abd: Soft, NT, ND Ext: No edema, no cyanosis. Left arm erythema near old IV site. No swelling. - Patient Status Disposition: Transfer SNF Condition: Fair Functional capacity at discharge: uses cane/walker Overall status at discharge: patient is progressing back to baseline - Discharge Instructions Follow Up With: Luis Fernando Galeana MD [Primary Care Provider] - - Diet and Activity Activity: as per physical therapy Diet: advance to your usual diet
[2018-05-29] MEDS ORDERED: Simethicone 80 MG TAB.CHEW PO ONE (11:29)
--- NOTE | 2018-05-29 11:32 | Physician Discharge Referral ---
ExtendedCare Referral Info Institutional Level of Care: Skilled - Diagnosis (1) Altered mental state Priority: Primary Status: Acute (2) Syncope Priority: Secondary Status: Acute (3) GERD (gastroesophageal reflux disease) Priority: Secondary Status: Acute (4) HTN (hypertension) Priority: Secondary Status: Acute - Transfer Medications Prescriptions: Cefdinir [Omnicef] 300 mg PO BID #8 capsule Home Medications: Acetaminophen [Tylenol] 650 mg PO Q6HR PRN 05/26/18 [History] Atenolol [Tenormin] 50 mg PO BID 05/26/18 [History] Atorvastatin [Lipitor] 10 mg PO HS 05/26/18 [History] Cholecalciferol (Vitamin D3) [Dialyvite Vitamin D] 5,000 unit PO DAILY 05/26/18 [History] Clopidogrel [Plavix] 75 mg PO DAILY 05/26/18 [History] Lisinopril [Zestril] 40 mg PO BID 05/26/18 [History] Ondansetron HCl [Zofran] 4 mg PO Q6HR PRN 05/26/18 [History] Polyethylene Glycol 3350 [MiraLAX] 17 gm PO DAILY PRN 05/26/18 [History] Ranitidine HCl [Zantac] 300 mg PO DAILY 05/26/18 [History] Sennosides [Senna] 8.6 mg PO BID 05/26/18 [History] Sertraline [Zoloft] 25 mg PO DAILY 05/26/18 [History] Sucralfate [Carafate] 1 gm PO HS 05/26/18 [History] Sucralfate [Carafate] 1 gm PO TIDAC 05/26/18 [History] Trazodone HCl 25 mg PO HS 05/26/18 [History] cloNIDine HCl [CloNIDine HCl] 0.1 mg PO TID 05/26/18 [History] Cefdinir [Omnicef] 300 mg PO BID #8 capsule 05/29/18 [Rx] Preparation H Ointment 1 appl RC QID PRN tube 05/29/18 [Rx] Allergies/Adverse Reactions: 3 Allergy/AdvReac Type Severity Reaction Status Date / Time amlodipine Allergy Anaphylaxis Verified 05/27/18 01:51 Terazosin Allergy Anaphylaxis Verified 05/27/18 01:51 - Respiratory Orders Smoking Cessation: Smoking cessation has been advised. For more information, call the [place] Tobacco Quit Line at 4-627-FQKD-NOW. - Ancillary Orders May use pressure relief devices daily prn, May go on REGINALD w/family/respon green party w /meds at nurse discretion PRN - Mobility Orders Other (as per PT) - Rehabiliation Orders Rehab Potential: Fair Rehab Orders: Evaluation for Physical Therapy, Evaluation for Occupational Therapy - Treatments Skin tear care topically daily PRN per policy, May check for fecal impaction rectally daily PRN - Diet Orders Cardiac CERTIFICATION: I certify that the transfer of the above named patient to an Extended Care Facility is necessary for the continuing treatment of the diagnosis listed. The above information is true and accurate reflection of patient's current condition. Confidential - Redisclosure prohibited without a patient's written consent.
[2018-05-29 11:35] VITALS: BP 145/75
[2018-05-30] MEDS ORDERED: *HR* Enoxaparin 40 MG/0.4 ML SYRINGE SQ SCH (06:00)
== END 2018-05-29 18:38 | DRG 689 ==
LOC: 2NENU 19:57
PROVIDERS: ADMIT Internal Medicine; ATTEND Internal Medicine